=== PATIENT | female | born 1965 | race Two or more races ===

== ENCOUNTER → 2024-10-23 | Outpatient (CLI) | payer MEDICAID, SELFPAY ==
--- NOTE | 2024-10-23 14:51 | XR_ITS ---
Examination: Foot bilateral, 6 views Technique: AP, oblique, lateral views each foot total 6 views Date and time of exam: October 23, 2024 1519 hours INDICATIONS: Bilateral foot pain one year. FINDINGS: Moderate osteopenia Bilateral moderate narrowing first metatarsophalangeal joints Bilateral small plantar posterior bony calcaneal spurs No fracture or dislocation involving either foot No erosive arthritis IMPRESSION: Bilateral moderate narrowing first metatarsophalangeal joints Bilateral small plantar posterior bony calcaneal spurs
== END | disposition home or self-care (01) ==
PROVIDERS: PCP Physician Assistant; Referring Provider Podiatrist; Visit Provider Podiatrist
DX: M77.32 Calcaneal spur, left foot (principal); M77.31 Calcaneal spur, right foot; M25.872 Other specified joint disorders, left ankle and foot; M25.871 Other specified joint disorders, right ankle and foot
CPT/HCPCS: 73630

== ENCOUNTER → 2024-12-25 | Outpatient (CLI) | payer MEDICAID, SELFPAY ==
--- NOTE | 2024-12-25 10:30 | XR_ITS ---
Examination: Breast ultrasound complete, bilateral Date and time of exam: December 25, 2024 1028 hours INDICATIONS: Mammogram May 15, 2024 12 mm focal asymmetry nipple level right breast, 9:00 mass 15 x 15 mm on right breast sonogram May 15, 2024, 12:00 nodule left breast 4 mm Technique: Real-time grayscale ultrasonographic imaging bilateral breasts, including all 4 quadrants as well as nipple retroareolar and axillary regions. Findings: Sonographic images right breast No cystic or solid mass Sonographic images left breast 3:00 cyst 5 x 5 mm Dilated ducts throughout both breasts IMPRESSION: BI-RADS Category 2: Benign findings
--- NOTE | 2024-12-25 11:30 | XR_ITS ---
Examination: Diagnostic digital mammography, bilateral Computer aided detection 3-D breast Tomosynthesis, bilateral Date and time of exam: December 25, 2024 1045 hours INDICATIONS: Mammogram August 18, 2023 6 mm focal asymmetry 3:00 position right breast, 4 mm focal asymmetry 12:00 position left breast Technique: Nonmagnified MLO, CC views of the breasts to been obtained, reconstructed from 3-D Tomosynthesis images. R2 computer aided detection program utilized for evaluation of suspicious masses and/or abnormal calcifications. 3-D Tomosynthesis images obtained. Findings: The breasts are heterogeneously dense, which may obscure small masses No suspicious masses are noted on the spot compression views Benign calcifications Impression: BI-RADS Category 2: Benign findings Recommend yearly follow-up mammography.
== END | disposition home or self-care (01) ==
PROVIDERS: PCP Physician Assistant; Referring Provider Physician Assistant; Visit Provider Physician Assistant
DX: R92.323 Mammographic fibroglandular density, bilateral breasts (principal); R92.1 Mammographic calcification found on diagnostic imaging of breast; N60.02 Solitary cyst of left breast
CPT/HCPCS: 76641; 77062; 77066; G0279